=== PATIENT | male | born 1985 | race Caucasian/White ===

== ENCOUNTER 2017-10-31 02:38 | Emergency (ER) | payer OTHER ==
[2017-10-31 03:23] LABS: Hematocrit 44 % (42-52); Hemoglobin 15.6 g/dl (14.0-18.0); Mean Corpuscular HGB Conc 35 g/dl (31-36); Mean Corpuscular Hemoglobin 31 pg (27-31); Mean Corpuscular Volume 88 fL (80-94); Mean Platelet Volume 8 um3 (7.4-10.4); Red Blood Count 5.02 10^6/ul (4.0-5.4); Red Cell Distribution Width 13 % (10.5-15); White Blood Count 9.7 10^3/ul (3.5-10.8)
[2017-10-31 03:37] LABS: Albumin 4.4 g/dL (3.2-5.2); Calcium 9.4 mg/dL (8.6-10.3); EGFR African American 105.5 (>60); Globulin 2.6 g/dL (2-4); Potassium 3.7 mmol/L (3.5-5.0); Total Bilirubin 0.5 mg/dL (0.2-1.0)
[2017-10-31 03:40] LABS: Urine Bilirubin Negative (Negative); Urine Glucose Negative (Negative); Urine Nitrite Negative (Negative)
[2017-10-31] MEDS ORDERED: Pantoprazole TAB (NF) 40 MG TAB PO ONE (05:42)
[2017-10-31] MEDS ORDERED: Omeprazole CAP* 20 MG PO ONE (05:43)
--- NOTE | 2017-10-31 05:45 | ED ---
Александр Stacy Angela, scribed for Eyad Hernandez on 10/31/17 at 0252 . Abdominal Pain/Male - HPI Summary HPI Summary: This pt is a 32 y/o male presenting to [facility] c/o sudden onset of left upper quadrant abd pain for a couple of hours now. Pt reports his abd pain began after dinner last night (10/30/17). He states a few nights ago, notes he had muscle spasm in left upper quadrant and noticed blood in his semen. He denies nausea, vomiting, dysuria, hematuria. - History of Current Complaint Chief Complaint: EDAbdPain Stated Complaint: LEFT ABD PAIN Time Seen by Provider: 10/31/17 02:51 Hx Obtained From: Patient Onset/Duration: Lasting Hours, Still Present Timing: Lasting Hours Severity Currently: Moderate Pain Intensity: 7 Pain Scale Used: 0-10 Numeric Location: Discrete At: LUQ Radiates: No Aggravating Factor(s): Food Associated Signs And Symptoms: Negative: Urinary Symptoms, Nausea, Vomiting - Allergies/Home Medications Allergies/Adverse Reactions: Allergies Allergy/AdvReac Type Severity Reaction Status Date / Time Azithromycin Allergy Rash Verified 10/01/17 11:03 [From Zithromax Z-Alfonso] most antibiotics Allergy See Comment Uncoded 10/01/17 11:03 PMH/Surg Hx/FS Hx/Imm Hx Cardiovascular History: Reports: Hx Hypertension - MINOR, NO MEDICATION Respiratory History: Reports: Hx Asthma GI History: Reports: Hx Gastroesophageal Reflux Disease History: Reports: Other Problems/Disorders - chronic pelvic pain Musculoskeletal History: Reports: Hx Fibromyalgia - Surgical History Surgery Procedure, Year, and Place: tonsils; circumcision Infectious Disease History: No Infectious Disease History: Denies: Hx Clostridium Difficile, Hx Hepatitis, Hx Human Immunodeficiency Virus (HIV), Hx of Known/Suspected MRSA, Hx Shingles, Hx Tuberculosis, Hx Known/ Suspected VRE, Hx Known/Suspected VRSA, History Other Infectious Disease, Traveled Outside the [place] in Last 30 Days - Family History Known Family History: Negative: Diabetes, Blood Disorder - Social History Alcohol Use: None Substance Use Type: Reports: None Smoking Status (MU): Former Smoker Have You Smoked in the Last Year: No Review of Systems Negative: Fever, Chills Gastrointestinal: Other - abd muscle spasm Positive: Abdominal Pain. Negative: Vomiting, Nausea Genitourinary: Other - blood in semen Negative: dysuria, hematuria All Other Systems Reviewed And Are Negative: Yes Physical Exam - Summary Physical Exam Summary: Appearance: Well appearing, no pain distress Skin: warm, dry, reflects adequate perfusion Head/face: normal Eyes: EOMI, JAROD ENT: normal Neck: supple, nontender Respiratory: CTA, breath sounds present Cardiovascular: RRR, pulses symmetrical Abdomen: soft. Left flank tenderness. Bowel: present Musculoskeletal: normal, strength/ROM intact Neuro: normal, sensory motor intact, A&Ox3 Triage Information Reviewed: Yes Vital Signs On Initial Exam: Initial Vitals Temp Pulse Resp BP Pulse Ox 97.6 F 80 16 163/106 97 10/31/17 02:40 10/31/17 02:40 10/31/17 02:40 10/31/17 02:40 10/31/17 02:40 Vital Signs Reviewed: Yes Diagnostics - Vital Signs Vital Signs Temp Pulse Resp BP Pulse Ox 10/31/17 02:40 97.6 F 80 16 163/106 97 - Laboratory Result Diagrams: 10/31/17 03:10 10/31/17 03:10 Lab Statement: Any lab studies that have been ordered have been reviewed, and results considered in the medical decision making process. - CT Abdomen/pelvis CT CT Interpretation: No Acute Changes - IMPRESSION: No bowel obstruction, free air , or free fluid. Negative for diverticulitis or colitis. Normal appendix. No urinary tract stone or obstruction. Enlarged fatty liver. Normal spleen. Normal pancreas. Normal adrenal glands. Contracted gallbladder. No other abnormalities. Dr. Hernandez has reviewed this radiology report. CT Interpretation Completed By: Radiologist Re-Evaluation - Re-Evaluation First Eval Re-Evaluation Time: 05:40 Comment: I reviewed the CT results with the pt. Abdominal Pain Fem Course/Dx - Course Course Of Treatment: Pt is a 32 y/o male who presents with sudden onset of left upper quadrant abd pain last night after dinner. Bloodwork and CT abdomen/ pelvis were obtained. CT is negative. Pt will be discharged to home. - Diagnoses Provider Diagnoses: Nonspecific abdominal pain Discharge - Discharge Plan Condition: Stable Disposition: HOME Patient Education Materials: Abdominal Pain (ED) Referrals: Yung Albarran MD [Primary Care Provider] - Additional Instructions: Please follow up with your primary care provider in 3 days. RETURN TO THE ED FOR ANY WORSENING SYMPTOMS in 48 HOURS. The documentation as recorded by the Александр tobias Angela accurately reflects the service I personally performed and the decisions made by , Eyad Hernandez.
[2017-10-31 06:09] VITALS: BP 153/84
--- NOTE | 2017-10-31 08:33 | RAD ---
Indication: Left flank pain. CT of the abdomen and pelvis was performed without oral or IV contrast administration. Coronal and sagittal reconstructed images were obtained. Lung bases demonstrate no pleural fluid, nodules or masses. Heart is of normal size without evidence of pericardial effusion. The liver demonstrates diffusely decreased density consistent with hepatic steatosis. No focal lesions or intrahepatic ductal dilatation is noted. The gallbladder is partially collapsed. No calcified gallstones are noted. The pancreas demonstrates no mass or ductal dilatation. The common duct is not dilated. Spleen is normal in size. No adrenal lesions are noted. The kidneys demonstrate no hydronephrosis. No retroperitoneal lymphadenopathy is noted. No dilated loops of bowel are noted. The appendix is visualized and is unremarkable. The urinary bladder is unremarkable. The prostate and seminal vesicles are unremarkable. No hernias are noted. IMPRESSION: No evidence of obstructive uropathy is noted. Hepatic steatosis is noted.
== END 2017-10-31 06:11 | disposition home or self-care (01) ==
LOC: ED 02:38
DX: R10.12 Left upper quadrant pain (principal); Z86.79 Personal history of other diseases of the circulatory system; Z87.891 Personal history of nicotine dependence
CPT/HCPCS: 36415; 74176; 80053; 81003; 83690; 84484; 85025; 99282; A9270-GY

== ENCOUNTER 2019-02-05 10:27 | Emergency (ER) | payer OTHER ==
[2019-02-05] MEDS ORDERED: Sodium Chloride(INHALANT) 3%* 4 ML NEB.SOLN INH ONE (11:01)
[2019-02-05] MEDS ORDERED: Albuterol HFA INHALER* 8 gm MDI INH ONE (11:12)
[2019-02-05 11:48] VITALS: BP 141/98
--- NOTE | 2019-02-06 07:27 | ED ---
Throat Pain/Nasal Congestion - HPI Summary HPI Summary: Patient is a 33yo M presenting to the ED with feelings of throat discomfort and dryness. He also states he has to clear his throat frequently. He stated he used a CPD oil cartridge for a vaping pen. He states he had a coughing spell following the vape pen, then several hours later developed discomfort in the throat with throat dryness. Denies any chest pain or SOB. He states he was at a residence with a cat and states he is "deathly allergic" so feels there may be a component of allergies as well. History of asthma, but states he does not take his asthma inhaler because he doesn't want to open up his airways "to allow more allergens into his lungs." He appears very anxious on arrival. History of fibromyalgia. - History of Current Complaint Chief Complaint: EDThroatPain Time Seen by Provider: 02/05/19 10:54 Hx Obtained From: Patient Onset/Duration: Sudden Onset Severity: Mild Associated Signs And Symptoms: Positive: Negative - Epiglottits Risk Factors Epiglottis Risk Factors: Negative - Allergies/Home Medications Allergies/Adverse Reactions: Allergies Allergy/AdvReac Type Severity Reaction Status Date / Time azithromycin Allergy Rash Verified 02/05/19 10:58 cat dander Allergy Swelling Verified 02/05/19 10:58 Of Face,Lips,& Throat most antibiotics Allergy See Comment Uncoded 02/05/19 10:58 PMH/Surg Hx/FS Hx/Imm Hx Previously Healthy: Yes Cardiovascular History: Reports: Hx Hypertension - MINOR, NO MEDICATION Respiratory History: Reports: Hx Asthma GI History: Reports: Hx Gastroesophageal Reflux Disease History: Reports: Other Problems/Disorders - chronic pelvic pain Musculoskeletal History: Reports: Hx Fibromyalgia - Surgical History Surgery Procedure, Year, and Place: tonsils; circumcision - Immunization History Hx Pertussis Vaccination: No Immunizations Up to Date: Yes Infectious Disease History: No Infectious Disease History: Denies: Hx Clostridium Difficile, Hx Hepatitis, Hx Human Immunodeficiency Virus (HIV), Hx of Known/Suspected MRSA, Hx Shingles, Hx Tuberculosis, Hx Known/ Suspected VRE, Hx Known/Suspected VRSA, History Other Infectious Disease, Traveled Outside the [place] in Last 30 Days - Family History Known Family History: Negative: Diabetes, Blood Disorder - Social History Occupation: Unemployed Lives: With Family Alcohol Use: None Hx Substance Use: Yes Substance Use Type: Reports: Prescribed Smoking Status (MU): Former Smoker Have You Smoked in the Last Year: No Review of Systems Constitutional: Negative Negative: Fever, Chills, Fatigue, Skin Diaphoresis ENT: Other - feeling of sore throat and dry throat Positive: Sore Throat Negative: Palpitations, Chest Pain Positive: Cough. Negative: Shortness Of Breath Genitourinary: Negative Positive: no symptoms reported, see HPI Skin: Negative All Other Systems Reviewed And Are Negative: Yes Physical Exam Triage Information Reviewed: Yes Vital Signs On Initial Exam: Initial Vitals Temp Pulse Resp BP Pulse Ox 99.5 F 102 20 140/93 97 02/05/19 10:33 02/05/19 10:33 02/05/19 10:33 02/05/19 10:33 02/05/19 10:33 Vital Signs Reviewed: Yes Appearance: Positive: Well-Appearing, Well-Nourished Skin: Positive: Skin Color Reflects Adequate Perfusion Eyes: Positive: EOMI, Conjunctiva Clear Neck: Positive: Supple Respiratory/Lung Sounds: Positive: Clear to Auscultation, Breath Sounds Present Cardiovascular: Positive: RRR, Pulses are Symmetrical in both Upper and Lower Extremities Musculoskeletal: Positive: Normal, Strength/ROM Intact Neurological: Positive: Speech Normal Psychiatric: Positive: Affect/Mood Appropriate Diagnostics - Vital Signs Vital Signs Temp Pulse Resp BP Pulse Ox 02/05/19 11:44 98 F 93 16 141/98 98 02/05/19 10:33 99.5 F 102 20 140/93 97 - Laboratory Lab Statement: Any lab studies that have been ordered have been reviewed, and results considered in the medical decision making process. EENT Course/Dx - Course Course Of Treatment: During the patient's course of treatment, he is evaluated for excessive throat clearing, postnasal drip, feeling of dry throat after using a vapo pen. His vital signs are stable. There is no crepitus noted to his neck or clavicular area. No shortness of breath. No difficulty or shallow breathing. No coughing at this time. Denies any neck pain, vomiting, trouble swallowing. Lungs CTA. RRR. Patient appears very anxious. He is given a NS inhalation treatment and encouraged cepacol tabs. He will return if he develops any SOB or CP. He is given albuterol inhaler in the ED as his has . - Diagnoses Provider Diagnoses: Sore throat Discharge - Sign-Out/Discharge Documenting (check all that apply): Patient Departure Patient Received Moderate/Deep Sedation with Procedure: No - Discharge Plan Condition: Stable Disposition: HOME Patient Education Materials: Smoke Inhalation (ED) Referrals: Yung Albarran MD [Primary Care Provider] - Additional Instructions: Cepacol for throat pain Allergy medication - take daily x 3 days Albuterol inhaler up to every 4 hours for ashtma/allergy symptoms - Billing Disposition and Condition Condition: STABLE Disposition: Home
== END 2019-02-05 11:14 | disposition home or self-care (01) ==
LOC: ED 10:27
DX: J02.9 Acute pharyngitis, unspecified (principal); R05 Cough; Z88.1 Allergy status to other antibiotic agents; Z91.048 Other nonmedicinal substance allergy status; Z87.891 Personal history of nicotine dependence
CPT/HCPCS: 99281; A9270-GY

== ENCOUNTER 2019-02-06 16:43 | Emergency (ER) | payer OTHER ==
[2019-02-06 17:18] LABS: Influenza A Molecular POSITIVE (Negative)
[2019-02-06] MEDS ORDERED: Ibuprofen TAB* 600 MG PO ONE (18:25)
[2019-02-06] MEDS ORDERED: Ibuprofen TAB* 600 MG ONE (18:26)
--- NOTE | 2019-02-06 18:30 | ED ---
Influenza-Like Illness - HPI Summary HPI Summary: 33-year-old male presents with flulike illness for the past 2 days. He admits to nausea sore throat and sinus congestion. He admits to headache and generalized muscle aches. Denies any neck stiffness. Admits to occasional headache. He admits to cough. He denies any chest pain or shortness of breath. No bowel pain or diarrhea. has been using inhaler for his symptoms. - History of Current Complaint Chief Complaint: EDFluSymptoms Time Seen by Provider: 02/06/19 17:41 - Allergy/Home Medications Allergies/Adverse Reactions: Allergies Allergy/AdvReac Type Severity Reaction Status Date / Time azithromycin Allergy Rash Verified 02/06/19 16:57 cat dander Allergy Swelling Verified 02/06/19 16:57 Of Face,Lips,& Throat most antibiotics Allergy See Comment Uncoded 02/06/19 16:57 PMH/Surg Hx/FS Hx/Imm Hx Cardiovascular History: Reports: Hx Hypertension - MINOR, NO MEDICATION Respiratory History: Reports: Hx Asthma GI History: Reports: Hx Gastroesophageal Reflux Disease History: Reports: Other Problems/Disorders - chronic pelvic pain Musculoskeletal History: Reports: Hx Fibromyalgia - Surgical History Surgery Procedure, Year, and Place: tonsils; circumcision Infectious Disease History: No Infectious Disease History: Denies: Hx Clostridium Difficile, Hx Hepatitis, Hx Human Immunodeficiency Virus (HIV), Hx of Known/Suspected MRSA, Hx Shingles, Hx Tuberculosis, Hx Known/ Suspected VRE, Hx Known/Suspected VRSA, History Other Infectious Disease, Traveled Outside the [place] in Last 30 Days - Family History Known Family History: Negative: Diabetes, Blood Disorder - Social History Alcohol Use: None Hx Substance Use: Yes Substance Use Type: Reports: Prescribed Smoking Status (MU): Former Smoker Have You Smoked in the Last Year: No Review of Systems Positive: Fever Positive: Nasal Discharge Negative: Chest Pain Positive: Cough. Negative: Shortness Of Breath Positive: Nausea. Negative: Abdominal Pain Positive: Myalgia All Other Systems Reviewed And Are Negative: Yes Physical Exam Triage Information Reviewed: Yes Vital Signs On Initial Exam: Initial Vitals Temp Pulse Resp BP Pulse Ox 98.8 F 95 16 144/89 96 02/06/19 16:53 02/06/19 16:53 02/06/19 16:53 02/06/19 16:53 02/06/19 16:53 Vital Signs Reviewed: Yes Appearance: Positive: Well-Appearing Skin: Positive: Warm, Dry Head/Face: Positive: Normal Head/Face Inspection Eyes: Positive: Normal, EOMI, JAROD, Conjunctiva Clear ENT: Positive: Normal ENT inspection, Pharynx normal, Nasal congestion, TMs normal Respiratory/Lung Sounds: Positive: Clear to Auscultation, Breath Sounds Present Cardiovascular: Positive: Normal, RRR Abdomen Description: Positive: Nontender, Soft Bowel Sounds: Positive: Present Musculoskeletal: Positive: Normal Neurological: Positive: Normal Psychiatric: Positive: Normal Diagnostics - Vital Signs Vital Signs Temp Pulse Resp BP Pulse Ox 02/06/19 16:53 98.8 F 95 16 144/89 96 - Laboratory Lab Results: Lab Results 02/06/19 Range/Units 17:12 Influenza A (Rapid) Positive A (Negative) Lab Statement: Any lab studies that have been ordered have been reviewed, and results considered in the medical decision making process. Flu Symptom Course/Dx - Course Course Of Treatment: 33-year-old male presents with flulike illness for the past 2 days. He admits to nausea sore throat and sinus congestion. He admits to headache and generalized muscle aches. Denies any neck stiffness. Admits to occasional headache. He admits to cough. He denies any chest pain or shortness of breath. No bowel pain or diarrhea. has been using inhaler for his symptoms. On exam appears ill but nontoxic. lungs clear to auscultation. Pharynx normal. Abdomen soft nontender. Discussed giving Tamiflu and patient declined. Will give Zofran for nausea. told to encourage fluids and take tyenlol or ibuprofen as needed for fever. Patient understands agrees with plan. - Diagnoses Differential Diagnosis/HQI/PQRI: Positive: Influenza, Pneumonia, Upper Respiratory Infection Provider Diagnoses: Influenza Discharge - Sign-Out/Discharge Documenting (check all that apply): Patient Departure Patient Received Moderate/Deep Sedation with Procedure: No - Discharge Plan Condition: Good Disposition: HOME Prescriptions: Ondansetron ODT TAB* [Zofran 4 MG Odt TAB*] 4 mg PO Q6H PRN #12 tab.odt PRN Reason: Nausea Patient Education Materials: Influenza (ED) Forms: *Work Release Referrals: Yung Albarran MD [Primary Care Provider] - Additional Instructions: Alternate Tylenol and ibuprofen every 6 hours take zofran every 6 hours as needed for nausea Use saline rinses in nose for nasal congestion drink plenty of fluids Return to ED if develop any new or worsening symptoms - Billing Disposition and Condition Condition: GOOD Disposition: Home
[2019-02-06 18:36] VITALS: BP 137/81
== END 2019-02-06 18:35 | disposition home or self-care (01) ==
LOC: ED 16:43
DX: J10.1 Influenza due to other identified influenza virus with other respiratory manifestations (principal); Z88.1 Allergy status to other antibiotic agents; Z91.048 Other nonmedicinal substance allergy status; Z87.891 Personal history of nicotine dependence
CPT/HCPCS: 99281; A9270-GY

== ENCOUNTER 2019-07-15 21:39 | Emergency (ER) | payer OTHER ==
[2019-07-15] MEDS ORDERED: Ondansetron INJ* 2 MG/ML VIAL IV ONE (22:46)
[2019-07-15] MEDS ORDERED: NS 0.9% 1000 ML** 1,000 ML IV ONE (22:46)
--- NOTE | 2019-07-15 22:47 | ED ---
Nausea/Vomiting/Diarrhea HPI - HPI Summary HPI Summary: Patient complains of nausea, diarrhea, and mild crampy diffuse abdominal pain starting 4:30 PM today. Patient states 5 episodes of diarrhea. Last episode of diarrhea at 7:30 PM. Abdominal pain improves with diarrhea. Denies fever, cough, sore throat, CP, SOB, vomiting, change in urine, testicular or penile symptoms. Medical history is asthma, fibromyalgia. - History of Current Complaint Chief Complaint: EDNauseaVomitDiarrh Stated Complaint: NAUSEA,LIGHT HEADED,WEAK PER PT Time Seen by Provider: 07/15/19 22:44 Hx Obtained From: Patient Onset/Duration: Sudden Onset, Lasting Hours Timing: Intermittent Episodes Lasting: Severity Initially: Mild Severity Currently: Mild Pain Intensity: 2 Pain Scale Used: 0-10 Numeric Location: Diffuse Character: Cramping Aggravating Factor(s): Nothing Alleviating Factor(s): Bowel Movement Nausea/Vomiting Presence: Nauseated Diarrhea Presence: Yes Diarrhea Frequency: Every 1-2 hours Diarrhea Characteristics: Watery - Allergies/Home Medications Allergies/Adverse Reactions: Allergies Allergy/AdvReac Type Severity Reaction Status Date / Time azithromycin Allergy Rash Verified 05/05/19 14:41 cat dander Allergy Swelling Verified 05/05/19 14:41 Of Face,Lips,& Throat most antibiotics Allergy See Comment Uncoded 05/05/19 14:41 PMH/Surg Hx/FS Hx/Imm Hx Endocrine/Hematology History: Denies: Hx Anticoagulant Therapy Cardiovascular History: Reports: Hx Hypertension - MINOR, NO MEDICATION Respiratory History: Reports: Hx Asthma GI History: Reports: Hx Gastroesophageal Reflux Disease History: Reports: Other Problems/Disorders - chronic pelvic pain Musculoskeletal History: Reports: Hx Fibromyalgia Sensory History: Denies: Hx Deafness Opthamlomology History: Denies: Hx Eye Prosthesis EENT History: Denies: Hx Hearing Problem Neurological History: Denies: Hx Dementia - Surgical History Surgery Procedure, Year, and Place: tonsils; circumcision Infectious Disease History: No Infectious Disease History: Denies: Hx Clostridium Difficile, Hx Hepatitis, Hx Human Immunodeficiency Virus (HIV), Hx of Known/Suspected MRSA, Hx Shingles, Hx Tuberculosis, Hx Known/ Suspected VRE, Hx Known/Suspected VRSA, History Other Infectious Disease, Traveled Outside the [place] in Last 30 Days - Family History Known Family History: Negative: Diabetes, Blood Disorder - Social History Alcohol Use: None Hx Substance Use: Yes Substance Use Type: Reports: Marijuana Smoking Status (MU): Former Smoker Have You Smoked in the Last Year: No Review of Systems Constitutional: Negative Eyes: Negative ENT: Negative Cardiovascular: Negative Respiratory: Negative Positive: Abdominal Pain, Diarrhea, Nausea Genitourinary: Negative Musculoskeletal: Negative Skin: Negative Neurological: Negative Psychological: Normal All Other Systems Reviewed And Are Negative: Yes Physical Exam - Summary Physical Exam Summary: Abdomen soft nontender. Triage Information Reviewed: Yes Vital Signs On Initial Exam: Initial Vitals Temp Pulse Resp BP Pulse Ox 98.1 F 97 20 128/100 98 07/15/19 21:40 07/15/19 21:40 07/15/19 21:40 07/15/19 21:40 07/15/19 21:40 Vital Signs Reviewed: Yes Appearance: Positive: Well-Appearing Skin: Positive: Warm Head/Face: Positive: Normal Head/Face Inspection Eyes: Positive: Normal ENT: Positive: Normal ENT inspection Neck: Positive: Supple Respiratory/Lung Sounds: Positive: Clear to Auscultation Cardiovascular: Positive: Normal Abdomen Description: Positive: Nontender Musculoskeletal: Positive: Normal Neurological: Positive: Normal Psychiatric: Positive: Normal AVPU Assessment: Alert - [place] Coma Scale Best Eye Response: 4 - Spontaneous Best Motor Response: 6 - Obeys Commands Best Verbal Response: 5 - Oriented Coma Scale Total: 15 Diagnostics - Vital Signs Vital Signs Temp Pulse Resp BP Pulse Ox 07/15/19 21:40 98.1 F 97 20 128/100 98 - Laboratory Result Diagrams: 07/15/19 23:04 07/15/19 23:05 Lab Statement: Any lab studies that have been ordered have been reviewed, and results considered in the medical decision making process. Naus/Vom/Diarrhea Course/Dx - Course Course Of Treatment: Patient complains of nausea, diarrhea, and mild crampy diffuse abdominal pain starting 4:30 PM today. Patient states 5 episodes of diarrhea. Last episode of diarrhea at 7:30 PM. Abdominal pain improves with diarrhea. Denies fever, cough, sore throat, CP, SOB, vomiting, change in urine , testicular or penile symptoms. Medical history is asthma, fibromyalgia. Vital signs within normal limits. Labs unremarkable. 1 L normal saline administered. - Differential Dx/Diagnosis Provider Diagnosis: Nausea vomiting and diarrhea Condition At Discharge: Stable Discharge ED - Sign-Out/Discharge Documenting (check all that apply): Patient Departure Patient Received Moderate/Deep Sedation with Procedure: No - Discharge Plan Condition: Stable Disposition: HOME Prescriptions: Ondansetron ODT TAB* [Zofran 4 MG Odt TAB*] 4 mg PO Q8H PRN 4 Days #14 tab.odt PRN Reason: Nausea Patient Education Materials: Acute Nausea and Vomiting (ED), Acute Diarrhea (ED ) Referrals: Yung Albarran MD [Primary Care Provider] - Additional Instructions: Drink plenty of fluids to maintain hydration. Use [id number] Imodium for diarrhea if needed. Return to the ED for any new or worsening symptoms. - Billing Disposition and Condition Condition: STABLE Disposition: Home
[2019-07-15 23:15] LABS: ABS Basophils 0.1 10^3/ul (0-0.2); ABS Eosinophils 0.6 10^3/ul (0-0.6); ABS Lymphocytes 3.4 10^3/ul (1.0-4.8); ABS Monocytes 0.6 10^3/ul (0-0.8); ABS Neutrophils 5.7 10^3/ul (1.5-7.7); Hematocrit 45 % (42-52); Hemoglobin 15.7 g/dL (14.0-18.0); Lymphocyte % 32.4 %; Mean Corpuscular HGB Conc 35 g/dL (31-36); Mean Corpuscular Hemoglobin 31 pg (27-31); Mean Corpuscular Volume 88 fL (80-94); Mean Platelet Volume 7.5 fL (7.4-10.4); Nucleated Red Blood Cells % 0.1; Platelet Count 287 10^3/uL (150-450); Red Blood Count 5.15 10^6 /uL (4.18-5.48); Red Cell Distribution Width 13 % (10-15); White Blood Count 10.4 10^3/uL (3.5-10.8)
[2019-07-15 23:31] LABS: Albumin 4.6 g/dL (3.2-5.2); Albumin/Globulin Ratio 1.9 (1-3); BUN/Creatinine Ratio 17.1 (8-20); C Reactive Protein 4.14 mg/L (<8.01); Calcium 9.4 mg/dL (8.6-10.3); EGFR African American 93.5 (>60); EGFR Non-African American 77.3 (>60); Globulin 2.4 g/dL (2-4); Potassium 3.6 mmol/L (3.5-5.0); Total Bilirubin 0.5 mg/dL (0.2-1.0)
[2019-07-16 01:41] VITALS: BP 140/94
== END 2019-07-16 01:39 | disposition home or self-care (01) ==
LOC: ED 21:39
DX: R11.2 Nausea with vomiting, unspecified (principal); R19.7 Diarrhea, unspecified; I10 Essential (primary) hypertension; J45.909 Unspecified asthma, uncomplicated; K21.9 Gastro-esophageal reflux disease without esophagitis; Z87.891 Personal history of nicotine dependence; Z88.1 Allergy status to other antibiotic agents
CPT/HCPCS: 36415; 80053; 85025; 86140; 96361; 96374; 99282; J2405

== ENCOUNTER 2019-09-27 01:07 | Emergency (ER) | payer OTHER ==
--- OUTSIDE RECORDS SUMMARY | 2019-09-27 01:28 | XMS REPORT | Continuity of Care Document ---
:1985 External Reference #:[id number] Author Name Rufino Gonzalez MD (transmitted by agent of provider Macie Cadet) Address [address] [place] [address] Care Team Providers Name Role Phone Micheal Delgado MD - Care Team Information Bobbin Trucker [phone] Otolaryngology Yung Albarran MD - Family Care Team Information Bobbin Trucker Medicine Problems Description No Information Available Social History Type Date Description Comments Sex Unknown Tobacco Use Start: Unknown End: Unknown Patient is a former smoker Smoking Status Reviewed: 08/23/19 Patient is a former smoker Allergies, Adverse Reactions, Alerts Active Allergies Reaction Severity Comments Date Azithromycin rsh, itching 08/23/2019 ALL Antibiotics( Except Clindamycin) rash , itching 08/23/2019 Medications Active Medications SIG Qnty Indications Ordering Date Provider CBD [place] apply every 12 5units Rufino Gonzalez, 08/23/2019 4-3-9-1.2% Patches hours as needed to painful regions Cyclobenzaprine HCL take 5mg at 30tabs M79.7 Rufino Gonzalez, 08/23/2019 5mg night before Tablets bedtime Naltrexone HCL Way, 50mg Tablets ALDAIR See Buspirone HCL [place], 7.5mg Tablets Yung Cole MD Ketone Test [place], Strips Yung Cole MD Immunizations Description No Information Available Vital Signs Date Vital Result Comment 08/23/2019 10:51am Height 71 inches 5'11" Weight 241.50 lb Heart Rate 64 /min BP Systolic 104 mmHg BP Diastolic 75 mmHg Body Temperature 96.9 F Pain Level 8 O2 % BldC Oximetry 98 % BMI (Body Mass Index) 33.7 kg/m2 Results Description No Information Available Procedures Description No Information Available Medical Devices Description No Information Available Encounters Description No Information Available Assessments Date Code Description Provider 08/23/2019 K11.7 Xerostomia Rufino Gonzalez MD 08/23/2019 M79.7 Fibromyalgia Rufino Gonzalez MD 08/23/2019 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 08/23/2019 M54.2 Neck pain Rufino Gonzalez MD Plan of Treatment Future Appointment(s):11/02/2019 1:00 pm - Rufino [facility] MD at [facility]08/23/2019 - Rufino Gonzalez MDK11.7 XerostomiaFollow up: 3 [id number] FibromyalgiaNew Medication:Cyclobenzaprine HCL 5 mg - take 5mg at night before [id number] Temporomandibular iojfa-lhwo-rwnzlhspsap syndromeReferral:[facility], Sleep Disord,Diag/BlbfsxA32.2 Neck pain Functional Status Description No Information Available Mental Status Description No Information Available Referrals Refer to Reason for Referral Status Appt Date [facility] Concern for underlying sleep apnea; chronic Sent widespread pain, fatigue, bruxism and TMJ symptoms. Evaluate and treat. [address] [place] [phone]
[2019-09-27] MEDS ORDERED: Albuterol/Ipratropium NEB.SOL* Albuterol 2.5 MG/Ipratropium 0.5 MG 3 ML INH ONE (02:14)
--- NOTE | 2019-09-27 02:17 | ED ---
Respiratory - HPI Summary HPI Summary: 34 yo male presents with URI symptoms. He tells me that for the last 3 days he has had an intermittently productive cough, runny nose, and feeling fatigued. He has been taking OTC cold medicine with little relief. Denies fever, chills, SOB, chest pain, abdominal pain, n/v. He does not smoke. - History of Current Complaint Chief Complaint: EDGeneral Stated Complaint: GENERAL ILLNESS PER PT Time Seen by Provider: 09/27/19 02:10 Hx Obtained From: Patient Onset/Duration: Gradual Onset Pain Intensity: 0 - Allergy/Home Medications Allergies/Adverse Reactions: Allergies Allergy/AdvReac Type Severity Reaction Status Date / Time azithromycin Allergy Rash Verified 09/27/19 01:11 cat dander Allergy Swelling Verified 09/27/19 01:11 Of Face,Lips,& Throat most antibiotics Allergy See Comment Uncoded 09/27/19 01:11 PMH/Surg Hx/FS Hx/Imm Hx Endocrine/Hematology History: Denies: Hx Anticoagulant Therapy Cardiovascular History: Reports: Hx Hypertension - MINOR, NO MEDICATION Respiratory History: Reports: Hx Asthma GI History: Reports: Hx Gastroesophageal Reflux Disease History: Reports: Other Problems/Disorders - chronic pelvic pain Musculoskeletal History: Reports: Hx Fibromyalgia Sensory History: Denies: Hx Eye Prosthesis, Hx Deafness, Hx Hearing Problem Opthamlomology History: Denies: Hx Eye Prosthesis Neurological History: Denies: Hx Dementia - Surgical History Surgery Procedure, Year, and Place: tonsils; circumcision Infectious Disease History: No Infectious Disease History: Denies: Hx Clostridium Difficile, Hx Hepatitis, Hx Human Immunodeficiency Virus (HIV), Hx of Known/Suspected MRSA, Hx Shingles, Hx Tuberculosis, Hx Known/ Suspected VRE, Hx Known/Suspected VRSA, History Other Infectious Disease, Traveled Outside the [place] in Last 30 Days - Family History Known Family History: Negative: Diabetes, Blood Disorder - Social History Alcohol Use: None Hx Substance Use: Yes Substance Use Type: Reports: None Smoking Status (MU): Former Smoker Have You Smoked in the Last Year: No Review of Systems Constitutional: Negative Eyes: Negative Positive: Nasal Discharge Cardiovascular: Negative Positive: Cough Gastrointestinal: Negative Genitourinary: Negative Neurological: Negative Psychological: Normal All Other Systems Reviewed And Are Negative: No Physical Exam - Summary Physical Exam Summary: GENERAL: NAD. WDWN. No pain distress. SKIN: No rashes, sores, lesions, or open wounds. HEENT: Head: AT/NC Eyes: Conjunctiva clear without inflammation or discharge. Ears: Hearing grossly normal. TMs intact, no bulging, erythema, or edema. Nose: Nasal mucosa pink and moist. NTTP maxillary and frontal sinus. Throat: Posterior oropharynx without exudates, erythema, or tonsillar enlargement. Uvula midline. NECK: Supple. Nontender. No lymphadenopathy. CHEST: Mild wheezing throughout. No r/r. No accessory muscle use. Breathing comfortably and in no distress. CV: RRR. Pulses intact. Cap refill <2seconds NEURO: Alert. PSYCH: Age appropriate behavior. Triage Information Reviewed: Yes Vital Signs On Initial Exam: Initial Vitals Temp Pulse Resp BP Pulse Ox 99.2 F 90 16 131/93 95 09/27/19 01:09 09/27/19 01:09 09/27/19 01:09 09/27/19 01:09 09/27/19 01:09 Vital Signs Reviewed: Yes Procedures - Sedation Patient Received Moderate/Deep Sedation with Procedure: No Diagnostics - Vital Signs Vital Signs Temp Pulse Resp BP Pulse Ox 09/27/19 01:09 99.2 F 90 16 131/93 95 - Laboratory Lab Statement: Any lab studies that have been ordered have been reviewed, and results considered in the medical decision making process. - Radiology CXR Radiology Interpretation Completed By: ED Physician Summary of Radiographic Findings: No PNA - reviewed with Dr. Matias Disposition - Course Course Of Treatment: In the ED he was given a duoneb treatment and had great relief of his wheezing. Lung sounds improved and clear. CXR wet read as above. Suspect bronchitis - Diagnoses Provider Diagnoses: Bronchitis Discharge ED - Sign-Out/Discharge Documenting (check all that apply): Patient Departure - Discharge Plan Condition: Stable Disposition: HOME Prescriptions: Albuterol HFA INHALER* [Ventolin HFA Inhaler*] 1 puff INH Q6H PRN #1 mdi PRN Reason: Sob/Wheezing Patient Education Materials: Acute Bronchitis (ED) Referrals: Yung Albarran MD [Primary Care Provider] - Additional Instructions: If you develop a fever, shortness of breath, chest pain, new or worsening symptoms - please call your PCP or go to the ED immediately. Your chest X-ray was normal today. Use the albuterol inhaler to help with your cough and wheezing as directed. Your symptoms are likely from a viral infection. Viral infections do not respond to antibiotics and are limited to the treatment of symptoms. Viral infections typically run their course in 7-10 days. Drink plenty of fluids, especially if you are running any fever. Use salt water gargles several times a day. Take over the counter acetaminophen (Tylenol) or ibuprofen (Advil, Motrin) according to directions as needed for pain or fever. You may also use Chloraseptic spray or Cepacol lonzenges according to directions which contain a numbing medication and can provide some temporary relief from a sore throat. Return here or follow up with your primary care provider in 7 days if symptoms persist. - Billing Disposition and Condition Condition: STABLE Disposition: Home
[2019-09-27 03:08] VITALS: BP 118/70
== END 2019-09-27 03:07 | disposition home or self-care (01) ==
LOC: ED 01:07
DX: J40 Bronchitis, not specified as acute or chronic (principal); I10 Essential (primary) hypertension; J45.909 Unspecified asthma, uncomplicated; K21.9 Gastro-esophageal reflux disease without esophagitis; M79.7 Fibromyalgia; Z87.891 Personal history of nicotine dependence; Z88.1 Allergy status to other antibiotic agents
CPT/HCPCS: 71046; 99282; A9270-GY